=== PATIENT | female | born 1990 | race American Indian/Alaskan Native ===

== ENCOUNTER 2018-12-18 09:52 | Emergency (ER) | payer MEDICAID, OTHER ==
[2018-12-18 09:59] VITALS: BP 128/81
[2018-12-18] MEDS ORDERED: DECADRON IM ONE (11:08)
[2018-12-18] MEDS ORDERED: IBUPROFEN PO ONE (11:08)
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
== END 2018-12-18 11:39 | disposition home or self-care (01) ==
LOC: ED 09:52
DX: R51 Headache (principal); V49.40XA Driver injured in collision with unspecified motor vehicles in traffic accident, initial encounter; Y93.89 Activity, other specified; Y92.098 Other place in other non-institutional residence as the place of occurrence of the external cause; Y99.8 Other external cause status
CPT/HCPCS: 96372; 99282; J1100